=== PATIENT | male | born 1995 | race Two or more races ===

== ENCOUNTER 2024-08-14 03:14 | Emergency (ER) | payer MEDICAID, SELFPAY ==
[2024-08-14 03:20] VITALS: BP 142/85; PULSE 92; RESP 18; TEMP 36.9; O2SAT 97; BMI 25.4
--- NOTE | 2024-08-14 03:33 | PD.EDBURN ---
ED Smoke Inhal. Burn- RME/HPI General Chief complaint: Burn/Smoke Inhalation Stated complaint: BURN TO LEFT HAND Time Seen by Provider: 08/14/24 03:28 Source: patient Arrival date/time: 08/14/24 03:14 29-year-old male with no known medical history presents to the emergency room with a chief complaint of a thermal burn to his left hand. Patient states he was barbecuing slipped and caught his hand on the barbecue grill. Mode of arrival: ambulatory Limitations: no limitations Related Data Previous Rx's ?Medication ?Instructions ?Recorded cyclobenzaprine 10 mg tablet 10 mg PO TID PRN muscle spasm #15 10/04/20 tabs ibuprofen 800 mg tablet 800 mg PO TID PRN pain #30 tabs 10/04/20 bacitracin 500 unit/gram topical 1 applic topical TID #28 grams 08/14/24 ointment hydrocodone 5 mg-acetaminophen 325 1 tab PO BID PRN pain #10 tabs 08/14/24 mg tablet Allergies Allergy/AdvReac Type Severity Reaction Status Date / Time NKA* Allergy Uncoded 10/09/20 11:08 Review of Systems Review of Systems Systems Reviewed: All systems reviewed, normal except as documented Constitutional Constitutional: Reports system reviewed and no additional complaints, except as documented, Denies fatigue, Denies fever(s), Denies headache(s) and Denies weakness Eyes Eyes: Reports system reviewed and no additional complaints, except as documented, Denies blurry vision and Denies change in vision ENT Ears, Nose, Mouth, and Throat: Reports system reviewed and no additional complaints, except as documented, Denies otalgia, Denies headache(s), Denies nasal congestion, Denies throat swelling and Denies vertigo Cardiovascular Cardiovascular: Reports system reviewed and no additional complaints, except as documented, Denies chest pain, Denies dyspnea and Denies dyspnea on exertion Respiratory Respiratory: Reports system reviewed and no additional complaints, except as documented, Denies chest congestion, Denies cough, Denies dyspnea, Denies dyspnea on exertion and Denies wheezing Gastrointestinal Gastrointestinal: Reports system reviewed and no additional complaints, except as documented, Denies abdominal pain, Denies cramping, Denies nausea and Denies vomiting Genitourinary Genitourinary: Reports system reviewed and no additional complaints, except as documented, Denies dysuria and Denies hematuria Musculoskeletal Musculoskeletal: Reports system reviewed and no additional complaints, except as documented and Denies back pain Integumentary/Breasts Skin/Breast: Reports system reviewed and no additional complaints, except as documented, Reports erythema, Reports pruritus, Reports skin swelling and Reports wounds Neurologic Neurologic: Reports system reviewed and no additional complaints, except as documented, Denies confusion, Denies headache(s), Denies lack of coordination, Denies vertigo and Denies weakness Psychiatric Psychiatric: Reports system reviewed and no additional complaints, except as documented, Denies anxiety, Denies confusion, Denies depression, Denies paranoia, Denies suicidal ideation and Denies tactile hallucinations Endocrine Endocrine: Reports system reviewed and no additional complaints, except as documented and Denies fatigue Hematologic/Lymphatic Hematologic/Lymphatic: Reports system reviewed and no additional complaints, except as documented and Denies lymphadenopathy Allergic/Immunologic Allergic/Immunologic: Reports system reviewed and no additional complaints, except as documented, Denies throat swelling, Denies urticaria and Denies wheezing Past Medical History Past Medical History NEUROLOGIC: Negative Neurological Disorders CARDIAC: Negative Cardiac Disorders or Congestive Heart Failure RESPIRATORY: Negative Chronic Obstructive Pulmonary Disease (COPD) GASTROINTESTINAL: Negative Gastrointestinal Disorders GENITOURINARY: Negative Genitourinary Disorders or Renal Disease MUSCULOSKELETAL: Negative Musculoskeletal Disorders ENDOCRINE: Negative Endocrine Disorders, Diabetes Mellitus Type 1 or Diabetes Mellitus Type 2 HEMATOLOGIC: Negative Blood Disorders Family History FAMILY HISTORY: Positive Family Cardiac Disorders Surgical History SURGICAL: Positive Open Reduction Internal Fixation (RIGHT HAND AND WRIST) Social History SMOKING STATUS: Never smoker SUBSTANCE USE: marijuana ED Exam General Limitations: Present no limitations General appearance: Present alert and in no apparent distress Head Head exam: Present atraumatic Eye Eye exam: Present normal appearance, PERRL and EOMI ENT ENT exam: Present normal exam, normal oropharynx and mucous membranes moist Neck Neck exam: Present normal inspection, full ROM and trachea midline Chest Chest inspection: Present normal inspection and symmetric chest wall rise Respiratory Respiratory exam: Present normal lung sounds bilaterally Cardiovascular Cardiovascular exam: Present regular rate, normal rhythm and normal heart sounds Abdominal Exam Abdominal exam: Present soft and normal bowel sounds Extremities Exam Extremities exam: Present normal inspection and full ROM Expanded Upper Extremity Exam Shoulder exam: Present normal inspection Arm exam: Present normal inspection Elbow exam: Present normal inspection Forearm/Wrist exam: Present normal inspection Hand exam: Present tenderness, swelling and other (Second-degree connolly to the left palm) Back Exam Back exam: Present normal inspection and full ROM Neurological Exam Neurological exam: Present alert, oriented X3 and CN II-XII intact Psychiatric Psychiatric exam: Present normal affect and normal mood Skin Skin exam: Present warm, dry, intact and normal color Expanded Skin Exam Type of lesion: Present other (Burn) Distribution: Present involves palms/soles and LUE Description: Present tenderness, erythematous, swelling and blisters Course Quality Measures none Orders Category Date Time Status Wound Care X1 Care 08/14/24 03:33 Active Bacitracin Oint Tube Med 08/14/24 03:58 Discontinued See Dose Instructions TOP X1 ONE Bacitracin Oint pkt Med 08/14/24 03:28 Discontinued 1 gm TOP X1 ONE HYDROcodone*/APAP 5/325 [[place] 5/325] Med 08/14/24 03:42 Discontinued 1 tab PO X1 ONE Tet,Diphth,Pertuss(Acell)-Tdap [Boostrix Vacc] Med 08/14/24 03:33 Discontinued 0.5 ml IMI .ONCE ONE Vital Signs Vital signs: Vital Signs Temperature 98.4 F 08/14/24 03:20 Pulse Rate 92 08/14/24 03:20 Respiratory Rate 18 08/14/24 03:20 Blood Pressure 142/85 H 08/14/24 03:20 Pulse Oximetry (%) 97 08/14/24 03:20 Oxygen Delivery Method Room Air 08/14/24 03:20 O2 saturation 97% within normal limits Burn MDM Narrative MDM Narrative:: 29-year-old male with no known medical history presents to the emergency room with a chief complaint of a thermal burn to his left hand. Patient states he was barbecuing slipped and caught his hand on the [employer] grill. Patient is hemodynamically stable and nontoxic-appearing. There is no respiratory problems, lung sounds are clear bilaterally. The patient's only wound to the left palm. The wound is not circumferential. Multiple digits are swollen. This is a second-degree partial-thickness wound. It is approximately percent TBSA. Tetanus vaccination was updated bacitracin was applied to the wound with Xeroform dressing and a wet to dry. Due to it being in the palm I contacted the burn center and went off of the recommendations which are down below. Please wash the burn with soap and water. Apply bacitracin (ointment) and Xeroform dressing(yellow dressing) to the burn. You will then wrap it with gauze. If your fingers begin to get swollen please wrap them individually. I will send you with enough wound care supplies. Pain medication was sent to your pharmacy please pick it up and take it as indicated. Please call the burn clinic on August 16. Their phone number is . This is the number to the burn clinic. I sent them the images of your burn and they would like to see you on Friday. Their office is located in [place] call make an appointment and they will give you the directions. For any evidence of worsening signs or symptoms please return to the emergency room immediately The patient was given strict follow-up instructions. Patient agreed and stated he will follow-up at the burn clinic on Friday. Patient was discharged and educated to follow-up with primary care provider and return to the emergency room for any evidence of worsening signs or symptoms Patient data External records reviewed:: [facility] previous records Clinical information provided by:: patient Social determinants that could affect healthcare access:: none Patient has the following chronic illnesses:: No chronic illness How is presenting disease/condition affected by chronic disease/condition?: no chronic disease Evaluation data The following diagnostics were reviewed and interpreted by me:: lab results and radiology exam(s) Lab and/or radiology exams considered but not ordered:: Labs and radiology exams considered in order Interpretation Summary: N/A Medications / Prescriptions Medications or Prescriptions considered but not ordered:: Medication sent to patient's pharmacy Medication administrations:: Medication Administration History Discontinued Medications Hydrocodone Bitart/Acetaminophen (Hydrocodone/Apap 5/325 Tablet) 1 tab PO X1 ONE Stop: 08/14/24 03:43 Last Admin: 08/14/24 03:50 Dose: 1 tab Documented By: CVL Bacitracin (Bacitracin Oint 1 Gm Packet) 1 gm TOP X1 ONE Stop: 08/14/24 03:29 Last Admin: 08/14/24 03:50 Dose: 1 gm Documented By: CVL Bacitracin (Bacitracin Oint 15 Gm Tube) 0 gm TOP X1 ONE Stop: 08/14/24 03:59 Last Admin: 08/14/24 04:01 Dose: 15 tub Documented By: CB Diphtheria/Tetanus/Acell Pertussis (Diphth,Pertuss(Acell),Tet Vac 0.5 Ml Vial) 0.5 ml IMi .ONCE ONE Stop: 08/14/24 03:34 Last Admin: 08/14/24 03:50 Dose: 0.5 ml Documented By: CVL Rx given Consultations Consultation(s) initiated? (list below): No Diagnosis Burn Differential Diagnosis: other (Second-degree burn/first-degree burn/third-degree burn) Most likely diagnosis given after review of the tests above:: Second-degree burn Admission Indicated Admission indicated?: not indicated Admission Request Was there a request for admission?: No Disposition Plan Disposition Plan: Discharge Discharge Attestation Discharge Attestation: The patient and all family members were given an opportunity to ask questions and understood the discharge instructions. Discharge instructions specifically effects, indications for sooner follow up or return to the emergency department, and the expected course of current diagnosis. Patient condition: Stable Discharge Plan Plan Patient Disposition: HOME (Self Care) Disposition Comment: Stable Prescriptions/Referrals Prescriptions/Med Rec: New hydrocodone-acetaminophen 5-325 mg tablet 1 tab PO BID MDD 10mg PRN (Reason: pain) Qty: 10 0RF bacitracin 500 unit/gram ointment 1 applic topical TID Qty: 28 0RF No Action ibuprofen 800 mg tablet 800 mg PO TID PRN (Reason: pain) Qty: 30 0RF cyclobenzaprine 10 mg tablet 10 mg PO TID PRN (Reason: muscle spasm) Qty: 15 0RF Problem List Clinical Impression: 2nd deg burn palm Patient/Caregiver Discharge Instructions Education Materials: ED BURN Wound Check [No Infection], ED Burn, Second-Degree Additional Instructions: Please wash the burn with soap and water. Apply bacitracin (ointment) and Xeroform dressing(yellow dressing) to the burn. You will then wrap it with gauze. If your fingers begin to get swollen please wrap them individually. I will send you with enough wound care supplies. Pain medication was sent to your pharmacy please pick it up and take it as indicated. Please call the burn clinic on August 16. Their phone number is . This is the number to the burn clinic. I sent them the images of your burn and they would like to see you on Friday. Their office is located in [place] call make an appointment and they will give you the directions. For any evidence of worsening signs or symptoms please return to the emergency room immediately Print Language: Greek Stand Alone Forms: Lidia Award Info., Work/School Release, Patient Portal Info Letter Vaccines Vaccines Given During Stay: TDaP PA/CATALYST UNIT OPERATOR Supervising Physician PA/CATALYST UNIT OPERATOR Supervising Physician: Dr. Rowell
[2024-08-14] MEDS: HYDROcodone/APAP 5/325 TABLET 1 TAB PO (03:50)
[2024-08-14] MEDS: DIPHTH,PERTUSS(ACELL),TET VAC 0.5 ML VIAL IMi (03:50)
[2024-08-14] MEDS: BACITRACIN OINT 1 GM PACKET TOP (03:50)
[2024-08-14] MEDS: BACITRACIN OINT 15 GM TUBE TOP (04:01)
== END 2024-08-14 04:11 | disposition home or self-care (01) ==
LOC: SERX 03:57
PROVIDERS: Emergency Provider Emergency Medicine; PCP Nurse Practitioner Family
DX: T23.252A Burn of second degree of left palm, initial encounter (principal); Z23 Encounter for immunization; X08.8XXA Exposure to other specified smoke, fire and flames, initial encounter; Y93.G2 Activity, grilling and smoking food
CPT/HCPCS: 90471; 90715; 99283; A9270